=== PATIENT | female | born 1995 | race Caucasian/White ===

== ENCOUNTER 2017-02-06 20:34 | Emergency (ER) | payer MEDICAID ==
[2017-02-06] MEDS ORDERED: ONDANSETRON 4 MG TAB.RAPDIS PO ONE (22:29)
[2017-02-06] MEDS ORDERED: NORMAL SALINE 1000 ML 1,000 ML IV ONE (22:35)
--- NOTE | 2017-02-06 22:35 | ER Document Report ---
ED GI/ - General Mode of Arrival: Ambulatory Information source: Patient TRAVEL OUTSIDE OF THE [place] IN LAST 30 DAYS: No <MARY ANN STEVEN - Last Filed: 02/06/17 23:20> <REMY ELENA - Last Filed: 02/07/17 05:41> - General Chief Complaint: urinary problems Stated Complaint: VOMITING Time Seen by Provider: 02/06/17 22:26 Notes: Patient is a 21 year old female that presents to the emergency department today with complaints of many multiple complaints including a vaginal rash previously diagnosed as herpes last week, fevers, vomiting, generalized body aches, and light headedness. Patient states she was seen in an ER in [place], [place] last week twice for this vaginal rash. The first time she was diagnosed with a "staph infection and the next time she was diagnosed with herpes and started on acyclovir". Patient states her vomiting began after taking the acyclovir. Patient was also started on bactroban for a "severe UTI". (MARY ANN STEVEN) - Related Data Allergies/Adverse Reactions: No Known Allergies Allergy (Unverified 02/06/17 20:40) Past Medical History - General Information source: Patient - Social History Smoking Status: Never Smoker Cigarette use (# per day): No Frequency of alcohol use: None Drug Abuse: None Lives with: Family Family History: Reviewed & Not Pertinent Patient has suicidal ideation: No Patient has homicidal ideation: No - Medical History Medical History: Negative Surgical Hx: Negative <MARY ANN STEVEN - Last Filed: 02/06/17 23:20> Review of Systems - Review of Systems Constitutional: See HPI, Fever EENT: No symptoms reported Cardiovascular: See HPI, Lightheaded Respiratory: No symptoms reported Gastrointestinal: See HPI, Vomiting Genitourinary: No symptoms reported Female Genitourinary: No symptoms reported Musculoskeletal: See HPI Skin: See HPI, Rash - vaginal, was told it was herpes at a hospital in [place] last week Hematologic/Lymphatic: No symptoms reported Neurological/Psychological: No symptoms reported -: Yes All other systems reviewed and negative <MARY ANN STEVEN - Last Filed: 02/06/17 23:20> Physical Exam <MARY ANN STEVEN - Last Filed: 02/06/17 23:20> <REMY ELENA - Last Filed: 02/07/17 05:41> - Vital signs Vitals: Temp Pulse Resp BP Pulse Ox 98.4 F 86 20 135/82 H 97 02/06/17 20:36 02/06/17 20:36 02/06/17 20:36 02/06/17 20:36 02/06/17 20:36 - Notes Notes: Physical Exam: General: Alert, appears well. HEENT: Normocephalic. Atraumatic. PERRL. Extraocular movements intact. Oropharynx clear. Neck: Supple. Non-tender. Respiratory: No respiratory distress. Clear and equal breath sounds bilaterally. Cardiovascular: Regular rate and rhythm. Abdominal: Normal Inspection. Non-tender. No distension. Normal Bowel Sounds. Back: Non-tender. No deformity or step off. Extremities: Moves all four extremities. Upper extremities: Normal inspection. Normal ROM. Lower extremities: Normal inspection. No edema. Normal ROM. Neurological: Normal cognition. AAOx4. Normal speech. Psychological: Normal affect. Normal Mood. Skin: Warm. Dry. Normal color. (MARY ANN STEVEN) Course - Laboratory Result Diagrams: 02/06/17 22:55 02/06/17 22:55 <MARY ANN STEVEN - Last Filed: 02/06/17 23:20> - Laboratory Result Diagrams: 02/06/17 22:55 02/06/17 22:55 <REMY ELENA - Last Filed: 02/07/17 05:41> - Re-evaluation Re-evalutation: 02/07/17 02:52 Patient is a 21-year-old female who comes in complaining of vomiting, general malaise, and pain in her vaginal area. Patient has a urinary tract infection. She has been on Bactrim. That will be stopped and the patient will be started on Keflex after giving a dose of Rocephin in the emergency department. Patient also is not tolerating acyclovir. She will be switched to valacyclovir which she has been able to tolerate without a problem. Urine culture has been sent. Patient is to follow-up with her [employer] and return if she has any worsening or concerning symptoms. Feels better. Taking p.o. Stable for discharge. (REMY ELENA) - Vital Signs Vital signs: Temp Pulse Resp BP Pulse Ox 98.4 F 70 18 122/86 H 100 02/06/17 20:36 02/07/17 03:18 02/07/17 03:18 02/07/17 03:18 02/07/17 03:18 - Laboratory Laboratory results interpreted by me: 02/06/17 02/06/17 02/07/17 22:55 22:55 02:03 RDW 14.1 H Direct Bilirubin 0.5 H AST 40 H Urine Protein >=500 H Urine Ketones TRACE H Urine Blood MODERATE H Urine Bilirubin SMALL H Urine Urobilinogen 4.0 H Ur Leukocyte Esterase MODERATE H Discharge <MARY ANN STEVEN - Last Filed: 02/06/17 23:20> <REMY ELENA - Last Filed: 02/07/17 05:41> - Discharge Clinical Impression: UTI (urinary tract infection) Qualifiers: Urinary tract infection type: acute cystitis Hematuria presence: with hematuria Qualified Code(s): N30.01 - Acute cystitis with hematuria Herpes genitalis Qualifiers: Herpes simplex infection site: vulvovaginitis Qualified Code(s): A60.04 - Herpesviral vulvovaginitis Condition: Stable Disposition: HOME, SELF-CARE Instructions: Genital Herpes ([facility]), Urinary Tract Infection ([facility]) Prescriptions: Cephalexin Monohydrate [Keflex 500 mg Capsule] 500 mg PO Q6H 10 Days #40 capsule Lidocaine [Lidovex] 60 gm TP BIDP PRN #1 cream..g. PRN Reason: Valacyclovir HCl [Valtrex 500 Mg Tablet] 1,000 mg PO TID #20 tablet Forms: Return to Work Scribe Attestation: 02/07/17 05:40 I personally performed the services described in the documentation, reviewed and edited the documentation which was dictated to the scribe in my presence, and it accurately records my words and actions. (REMY ELENA) Scribe Documentation - Scribe Written by Sivakumaribe:: Angel Medellin, 02/07/2017 [id number] acting as scribe for :: Del <MARY ANN STEVEN - Last Filed: 02/06/17 23:20>
[2017-02-06] MEDS ORDERED: ONDANSETRON HCL INJ/PF 4 MG/2 ML SDV IV ONE (22:38)
[2017-02-06] MEDS ORDERED: KETOROLAC TROMETHAMINE INJ/PF 30 MG/1 ML SDV IV ONE (22:38)
[2017-02-06 23:17] LABS: ABSOLUTE EOSINOPHILS # (AUTO) 0.1 10^3/uL (0.0-0.6); ABSOLUTE LYMPHOCYTES (AUTO) 2.8 10^3/uL (0.5-4.7); ABSOLUTE MONOCYTES (AUTO) 0.7 10^3/uL (0.1-1.4); ABSOLUTE NEUT (AUTO) 6.1 10^3/uL (1.7-8.2); BASOPHILS % (AUTO) 0.2 % (0-2); HEMOGLOBIN 13.2 g/dL (12.0-15.5); HGB HCT DIFFERENCE 0.6; LYMPHOCYTES % (AUTO) 28.4 % (13-45); MEAN CORPUSCULAR HEMOGLOBIN 28.7 pg (27.0-33.4); MEAN CORPUSCULAR HGB CONC 33.7 g/dL (32.0-36.0); MEAN CORPUSCULAR VOLUME 85 fl (80-97); MONOCYTES % (AUTO) 7.2 % (3-13); RED BLOOD COUNT 4.59 10^6/uL (3.72-5.28); RED CELL DISTRIBUTION WIDTH 14.1 % (11.5-14.0); SEGMENTED NEUTROPHILS % (AUTO) 63.2 % (42-78); WHITE BLOOD COUNT 9.7 10^3/uL (4.0-10.5)
[2017-02-06] MEDS ORDERED: METOCLOPRAMIDE HCL INJ/PF 10 MG/2 ML SDV IV ONE (23:25)
[2017-02-06] MEDS ORDERED: LIDOCAINE 2% URO-JET 5 ML KIT MM ONE (23:25)
[2017-02-06 23:32] LABS: ALANINE AMINOTRANSFERASE 34 U/L (5-35); ALKALINE PHOSPHATASE 93 U/L (50-135); ANION GAP 12 (5-19); ASPARTATE AMINO TRANSFERASE 40 U/L (5-30); BILIRUBIN,DIRECT 0.5 mg/dL (0.0-0.4); BILIRUBIN,TOTAL 0.5 mg/dL (0.2-1.3); BLOOD UREA NITROGEN 12 mg/dL (7-20); CALCIUM 9.4 mg/dL (8.4-10.2); CARBON DIOXIDE 24 mmol/L (22-30); CHLORIDE 106 mmol/L (98-107); CREATININE RESULT 0.91 mg/dL (0.52-1.25); GLUCOSE 103 mg/dL (75-110); POTASSIUM 4.6 mmol/L (3.6-5.0); TOTAL PROTEIN 7.8 g/dL (6.3-8.2)
[2017-02-07] MEDS ORDERED: NORMAL SALINE 1000 ML 1,000 ML IV ONE (01:16)
[2017-02-07 02:58] LABS: APPEARANCE,URINE TURBID; BILIRUBIN,URINE SMALL (NEGATIVE); GLUCOSE, URINE NEGATIVE (NEGATIVE); KETONES,URINE TRACE mg/dL (NEGATIVE); LEUKOCYTE ESTERASE,URINE MODERATE (NEGATIVE); NITRITE,URINE NEGATIVE (NEGATIVE); PROTEIN,URINE >=500 mg/dL (NEGATIVE); URINE SPECIFIC GRAVITY 1.028
[2017-02-07] MEDS ORDERED: CEFTRIAXONE 1 GM/D5W RTU 50 ML IV ONE (03:04)
[2017-02-07] MEDS ORDERED: VALACYCLOVIR HCL 500 MG TABLET PO ONE (03:05)
[2017-02-07 03:19] VITALS: BP 122/86
[2017-02-07] MEDS ORDERED: CEFTRIAXONE INJ 1000 MG VIAL IM ONE (03:36)
[2017-02-07] MEDS ORDERED: LIDOCAINE 1% INJ-PF (10 MG/ML) 30 ML SDV INFIL ONE (03:36)
== END 2017-02-07 03:55 | disposition home or self-care (01) ==
LOC: ER 20:34
DX: N30.01 Acute cystitis with hematuria (principal); A60.04 Herpesviral vulvovaginitis; R11.10 Vomiting, unspecified; R42 Dizziness and giddiness; R50.9 Fever, unspecified; R53.81 Other malaise; R10.2 Pelvic and perineal pain
CPT/HCPCS: 99284; 96372; 96361; 96374; 96375; 36415; 87086; 85025; 81025; 87088; 80053; 81001; 87250; J3490 ×3; J1885; J2765; J0696; J2405; J7030 ×2